=== PATIENT | female | born 1960 | race Caucasian/White ===

== ENCOUNTER 2016-09-15 08:35 | Emergency (ER) | payer BC ==
[2016-09-15] MEDS ORDERED: Diphtheria,Pertussis(Acell),Tetanus Vaccine 0.5 ML SDV IM ONE (10:57)
[2016-09-16 07:29] VITALS: BP 138/74
--- NOTE | 2016-10-03 13:53 | ER ---
DATE SEEN: 09/15/2016 HISTORY OF PRESENT ILLNESS: She has laceration to finger. OTHER SIGNIFICANT PAST MEDICAL HISTORY: She has depression, hypothyroidism, hypertension. MEDICATIONS: Treated with: 1. Lexapro 200 mg daily. 2. Levothyroxine 100 mcg daily. 3. Hydrochlorothiazide 12.5 mg daily. 4. Bupropion XL 150 mg daily. ALLERGIES: Doxycycline. PHYSICAL EXAMINATION: VITAL SIGNS: Blood pressure 149/89, heart rate 86, respirations 16, oxygen saturation 100%, temperature 36.7 degrees centigrade, weight 58.96 kg. HEENT: Negative, PERRLA intact. Pharynx without abnormality. LUNGS: Clear. HEART: Without murmur. ABDOMEN: Soft. PROCEDURE: Wound was cleansed, injected with 1% lidocaine and epinephrine, and closed with 4 stitches interrupted 4-0 Ethilon. The patient tolerated the procedure well. No complications or problems DIAGNOSIS: Laceration to finger, 4 cm, single-layer closure. /[id number] RONNIE/ADILENE MONTENEGRO
== END 2016-09-15 10:45 | disposition home or self-care (01) ==
LOC: FB.ED 08:35
DX: S61.219A Laceration without foreign body of unspecified finger without damage to nail, initial encounter (principal); I10 Essential (primary) hypertension; F32.9 Major depressive disorder, single episode, unspecified; E03.9 Hypothyroidism, unspecified; Z79.899 Other long term (current) drug therapy; X58.XXXA Exposure to other specified factors, initial encounter
CPT/HCPCS: 12002; 90471; 90715; 99282